=== PATIENT | female | born 1955 | race African-American/Black ===

== ENCOUNTER 2020-08-22 12:29 | Outpatient (CLI) | payer OTHER, SELFPAY ==
--- NOTE | ~2020-08-22 | MM_ITS ---
EXAMINATION: MM screening lon BI w laura HISTORY: Screening mammogram TECHNIQUE: Craniocaudal and mediolateral oblique 3-D tomosynthesis images were obtained and synthetic 2-D images were generated. CAD analysis was submitted and interpreted. COMPARISON: 07/27/2018, 07/23/2017 bilateral digital screening mammogram examinations BREAST PARENCHYMAL COMPOSITION: There are scattered areas of fibroglandular density. FINDINGS: There are stable bilateral benign-appearing axillary tail lymph nodes. There is no evidence of suspicious mass, calcification, or architectural distortion to suggest malignancy in either breas t. There has been no suspicious interval change. IMPRESSION: 1. No mammographic evidence of malignancy. 2. Recommend routine screening mammography in one year. BI-RADS Category 2: Benign finding(s). Reviewed, dictated and finalized at location B. AL WEAVER
== END 2020-08-22 12:30 | disposition home or self-care (01) ==
LOC: ANHIMG 12:34
PROVIDERS: PCP Family Medicine; Visit Provider Obstetrics & Gynecology
DX: Z12.31 Encounter for screening mammogram for malignant neoplasm of breast (principal)
CPT/HCPCS: 77063; 77067

== ENCOUNTER 2021-04-13 10:35 | Outpatient (CLI) | payer OTHER, SELFPAY ==
--- NOTE | ~2021-04-13 | DEXA_ITS ---
Bone Density Report Name: Inessa Peña Age: 65 Sex: Female Ethnicity: Black Date of : 1955 Indication: postmenopausal; height loss; Referring Provider: Francesca Rodriguez Study: Bone densitometry was performed. Exam Date: April 13, 2021 Accession number: [id number] Bone Density: Region BMD T-score Z-score Classification AP Spine (L1-L4) 0.804 -2.2 -1.1 Osteopenia Femoral Neck (Left) 0.655 -1.7 -0.8 Osteopenia Total Hip (Left) 0.847 -0.8 -0.2 Normal Total Hip Bilateral Avg 0.865 -0.7 -0.1 Normal Femoral Neck (Right) 0.689 -1.4 -0.5 Osteopenia Total Hip (Right) 0.882 -0.5 0.1 Normal World Health Organization criteria for BMD impression classify patients as: Normal (T-score at or above -1.0), Osteopenia (T-score between -1.0 and -2.5), or Osteoporosis (T-score at or below -2.5). 10-year Fracture Risk(1): Major Osteoporotic Fracture 4.2% Hip Fracture 0.5% Reported Risk Factors: [place] (Black), Neck BMD=0.655, BMI=32.9 (1) FRAX(R) Version 3.08. Fracture probability calculated for an untreated patient. Fracture probability may be lower if the patient has received treatment. Clinical Information Provided by Patient: Patient maximum height was 64 Menopause Age: 54 Drinks caffeinated beverages Onset of menses at age 12 Number of children 3 Impression: The patient has low bone mass, based on the Total Spine T-score. The patient has an estimated ten-year risk of hip fracture of 0.5% and an estimated ten-year risk of major fracture of 4.2%, based on the WHO FRAX algorithm. Discussion: BONE DENSITY IS LOW AT ONE OR MORE SKELETAL SITES. This patient's lowest T-score is low at one or more skeletal sites. It meets the World Health Organization's (WHO) criteria for ?low bone mass? (T-score between -1.0 and -2.5). The patient's 10-year risk of fracture as calculated by FRAX is less than the threshold where pharmacological therapy is recommended by the National Osteoporosis Foundation (NOF). However, all treatment decisions require clinical judgment and consideration of individual patient factors, including patient preferences, comorbidities, previous drug use, risk factors not captured in the FRAX model (e.g., frailty, falls, vitamin D deficiency, increased bone turnover, interval significant decline in bone density) and possible under or overestimation of fracture risk by FRAX. The patient should follow a healthful lifestyle (good nutrition with adequate calcium and vitamin D, and appropriate weight-bearing exercise). Follow-Up: Consider repeating this study in 2 to 3 years to reassess this patient's status, or sooner if there is some new clinical indication. Reported by: [facility] on 04/13/2021 10:50:00 AM. Reviewed, dictated and finalized at location AAylin [facility]
== END 2021-04-13 10:36 | disposition home or self-care (01) ==
LOC: ANHIMG 10:36
PROVIDERS: PCP Family Medicine; Visit Provider Student in an Organized Health Care Education/Training Program
DX: N95.1 Menopausal and female climacteric states (principal); M85.89 Other specified disorders of bone density and structure, multiple sites
CPT/HCPCS: 77080

== ENCOUNTER 2021-11-05 15:07 | Outpatient (CLI) | payer OTHER, SELFPAY ==
--- NOTE | ~2021-11-05 | MM_ITS ---
EXAMINATION: MM screening lon BI w laura HISTORY: Screening TECHNIQUE: Craniocaudal and mediolateral oblique 3-D tomosynthesis images were obtained and synthetic 2-D images were generated. CAD analysis was submitted and interpreted. COMPARISON: Comparison to multiple prior studies sequentially, with oldest reviewed study dated 07/05. BREAST PARENCHYMAL COMPOSITION: There are scattered areas of fibroglandular density. FINDINGS: There is no evidence of suspicious mass, calcification, or architectural distortion to sugg est malignancy in either breast. There has been no suspicious interval change. IMPRESSION: 1. No mammographic evidence of malignancy. 2. Recommend routine screening mammography in one year. BI-RADS Category 1: Negative Reviewed, dictated and finalized at location A. OL COUNSELOR
== END 2021-11-05 15:08 | disposition home or self-care (01) ==
LOC: ANHIMG 15:09
PROVIDERS: PCP Family Medicine; Visit Provider Family Medicine
DX: Z12.31 Encounter for screening mammogram for malignant neoplasm of breast (principal)
CPT/HCPCS: 77063; 77067

== ENCOUNTER 2022-12-30 14:19 | Outpatient (CLI) | payer OTHER, SELFPAY ==
--- NOTE | ~2022-12-30 | MM_ITS ---
EXAMINATION: MM screening lon BI w laura HISTORY: Screening TECHNIQUE: Craniocaudal and mediolateral oblique 3-D tomosynthesis images were obtained and synthetic 2-D images were generated. CAD analysis was submitted and interpreted. COMPARISON: Comparison to multiple prior studies sequentially, with oldest reviewed study dated 07/05. BREAST PARENCHYMAL COMPOSITION: Breast composed of scattered areas of fibroglandular density FINDINGS: Stable bilateral intramammary and axillary lymph nodes. There is no evidence of suspicious mass, calcification, or architectural distortion to suggest malignancy in either breast. There has be en no suspicious interval change. IMPRESSION: 1. No mammographic evidence of malignancy. 2. Recommend routine screening mammography in one year. BI-RADS Category 2: Benign finding(s). Reviewed, dictated and finalized at location A.
== END 2022-12-30 14:20 | disposition home or self-care (01) ==
PROVIDERS: Visit Provider Obstetrics & Gynecology
DX: Z12.31 Encounter for screening mammogram for malignant neoplasm of breast (principal)
CPT/HCPCS: 77063; 77067